=== PATIENT | female | born 1980 | race Caucasian/White ===

== ENCOUNTER 2019-03-19 21:42 | Inpatient (IN) | payer BC ==
[~2019-03-19] VITALS: Ht 167.6 cm; Wt 105.7 kg
--- NOTE | 2019-03-19 22:25 | NUR ---
NURSE NOTES: Report called for direct admit from [facility] by TOM Garcia. Call back number is . Pt is on 5150 hold. ETA for pick-up and transport is 45 minutes. ETA for arrival is about 2345. MD Reed will be admitting doctor. Pending patient arrival.
--- NOTE | 2019-03-19 23:45 | NUR ---
NURSE NOTES: Patient arrived on unit via BLS transport. Pt independently ambulatory to bed with staff supervision. anode builder applied. Belongings list filled out and signed by this RN and patient. Pt has white iphone at bedside, no lithopone charger. Pt also has personal alprazolam rx which has been placed in pharmacy security bag and will be dropped off to pharmacy in AM (Receipt #[id number]). Pt is in stable condition upon arrival. Pt is awake, alert, and oriented x4. Pt is on room air and breathing is even and unlabored. No acute distress noted. IV site is L FA #[id number] inserted at [place] and IV site and dressing are asymptomatic, patent, and intact. Pt provided with orientation to surroundings and hospital policies. Bed placed in lowest position with brake engaged, side rails up x3, and bed alarm on. Call light and side table are placed within reach. Sitter is at bedside per 5150 hold protocol. Will continue to monitor patient and contact MD Reed for admission orders.
[2019-03-20] VITALS: BP 128/82
--- NOTE | 2019-03-20 00:40 | NUR ---
NURSE NOTES: MD Reed contacted for admission orders. Per MD, he will return call in 15 minutes to provide admission orders.
--- NOTE | 2019-03-20 01:15 | NUR ---
NURSE NOTES: MD Reed return call and made aware of current vital signs and pt status, home medications, and abnormal lab values per report from [facility]. MD Reed provide admission orders for patient. Orders noted and carried out. Sitter ordered per and 5150 protocol. Johnna Mckeon CNA is at bedside with patient. MD Amaya to consult.
[2019-03-20 01:52] LABS: APPEARANCE,URINE CLEAR; BILIRUBIN, URINE NEGATIVE (NEGATIVE); COLOR,URINE PALE YELLOW; GLUCOSE, URINE (UA) NEGATIVE (NEGATIVE); KETONES,URINE NEGATIVE (NEGATIVE); LEUKOCYTE ESTERASE ,URINE NEGATIVE (NEGATIVE); NITRITE,URINE NEGATIVE (NEGATIVE); PH,URINE 8 (4.5-8.0); PROTEIN,URINE NEGATIVE (NEGATIVE); UROBILINOGEN,URINE NORMAL MG/DL (0.0-1.0)
[2019-03-20] MEDS: D5NS 1,000 ML IV SCH ×2 (01:52→16:23)
[2019-03-20] MEDS: LORazepam 1mg tab ORAL PRN ×2 (02:04→10:29)
[2019-03-20 04:00] VITALS: BP 128/85
[2019-03-20] MEDS ORDERED: BUPROPION XL300 MG ORAL (05:25)
[2019-03-20] MEDS ORDERED: DICYCLOMINE HCL10 MG PO (05:25)
[2019-03-20] MEDS ORDERED: CYCLOBENZAPRINE10 MG ORAL (05:25)
[2019-03-20] MEDS ORDERED: ALPRAZOLAM1 MG ORAL (05:25)
[2019-03-20] MEDS ORDERED: NORCO 10-325 T1 EACH ORAL (05:25)
[2019-03-20] MEDS ORDERED: CYMBALTA30 MG ORAL (05:25)
--- NOTE | 2019-03-20 06:18 | NUR ---
NURSE NOTES: Pt allowed MRSA swab but is currently declining VRE swab. Will endorse to day shift.
[2019-03-20 06:40] LABS: BASOPHILS % (AUTO) 0.9 % (0.0-2.0); EOSINOPHILS % (AUTO) 0.5 % (0.0-3.0); HEMATOCRIT 36.6 % (37.0-47.0); HEMOGLOBIN 12.7 G/DL (12.0-16.0); LYMPHOCYTES % (AUTO) 34.3 % (20.0-45.0); MEAN CORPUSCULAR VOLUME 88 FL (80-99); MONOCYTES % (AUTO) 5.6 % (1.0-10.0); NEUTROPHILS % (AUTO) 58.8 % (45.0-75.0); PLATELET COUNT 289 K/UL (150-450); RED BLOOD COUNT 4.16 M/UL (4.20-5.40); RED CELL DISTRIBUTION WIDTH 11.5 % (11.6-14.8); WHITE BLOOD COUNT 7.8 K/UL (4.8-10.8)
--- NOTE | 2019-03-20 07:04 | NUR ---
NURSE NOTES: Received report from Jenny/RN, Patient is asleep, No distress/SOB noted at this time, Sitter at bedside. Bed in low position, Call light within reach. Will continue plan of care.
[2019-03-20 07:15] LABS: ANION GAP 11 mmol/L (5-15); BLOOD UREA NITROGEN 9 mg/dL (7-18); CALCIUM 8.9 MG/DL (8.5-10.1); CARBON DIOXIDE 25 MMOL/L (21-32); CHLORIDE 102 MMOL/L (98-107); CREATININE 0.9 MG/DL (0.55-1.30); PHOSPHORUS 4.8 MG/DL (2.5-4.9); POTASSIUM 3.4 MMOL/L (3.5-5.1); SODIUM 138 MMOL/L (136-145)
--- NOTE | 2019-03-20 07:28 | NUR ---
HAND-OFF: Report given to Macarena Swift RN. Pt is sleeping in bed in stable condition. No acute distress noted. Sitter is at bedside. Endorsed plan of care.
--- NOTE | 2019-03-20 07:50 | NUR ---
NURSE NOTES: Pt personal xanax rx taken down to pharmacy in security bag and counted with jazmin Tavera. Total is #20 tablets. Security bag sealed with pharmacist and kept in pharmacy per protocol. Receipt placed in patient chart.
[2019-03-20 08:00] VITALS: BP 126/80
[2019-03-20] MEDS ORDERED: Cyclobenzaprine 10mg Tab ORAL SCH (09:00)
[2019-03-20] MEDS ORDERED: Dicyclomine 10mg Cap ORAL SCH (09:00)
[2019-03-20] MEDS ORDERED: BuPROPion XL 150mg tab ORAL SCH (09:00)
[2019-03-20] MEDS ORDERED: DULoxetine 30mg cap ORAL SCH (09:00)
[2019-03-20] MEDS ORDERED: Dicyclomine 10mg Cap ORAL ONE (09:00)
--- NOTE | 2019-03-20 09:16 | Diagnostic Imaging Report ---
Indication: Cough Technique: One view of the chest Comparison: none Findings: Body habitus limits evaluation. Lungs and pleural spaces are clear. The heart size is normal. Impression: Negative
--- NOTE | 2019-03-20 09:18 | NUR ---
*-* NO INSURANCE INFORMATION TO SEND CLINICALS OR REVIEWS *-*
--- NOTE | 2019-03-20 11:09 | NUR ---
RADIOLOGY DEPT., CHEST X-RAY DONE.-P.DYE
--- NOTE | 2019-03-20 11:38 | Initial Psychiatric Evaluation ---
Psychiatry Consultation Psychiatry Consultation History of Present Illness: 38 yo female who has hx of borderline personality and anxiety who was admitted after she took and overdosed on 6 Xanax. The pt stated that her partner is dx with terminal cancer and for the past year the pt has observed her deteriorating. the pt stated that she is anxious through out the day and takes Xanax. Xanax is prescribed by her psychiatrist and she is taking 3mg a day. the pt was superficial and cracking jokes through the eval. the pt denied SA and stated that she was not suicidal "if I wanted to kill myself I would have taken the whole bottle." the pt stated that she was impulsive however had/has no intention of ending her life. Allergies: Coded Allergies: NO KNOWN ALLERGIES (Verified Allergy, Unknown, 03/19/19) Past Psychiatric History: several psych hospt bpd mdd cutting/self mutilating behavior Medical History: obesity Substance Abuse History: heroin alcohol sober for the past decade Medication History Scheduled Alprazolam* (Xanax*), 1 MG ORAL TID, (Reported) Bupropion Hcl* (Wellbutrin*), 300 MG ORAL DAILY, (Reported) Cyclobenzaprine Hcl* (Flexeril*), 10 MG ORAL DAILY, (Reported) Dicyclomine Hcl* (Dicyclomine Hcl*), 10 MG PO QID, (Reported) Duloxetine Hcl* (Cymbalta*), 30 MG ORAL DAILY, (Reported) Scheduled PRN Hydrocodone Bit/Acetaminophen 10-325* ([place] 10-325*), 1 TAB ORAL Q6H PRN for For Pain, (Reported) Patient History History Provided By: Patient, Medical Record, PMD Objective Data Height (Feet): 5 Height (Inches): 6.00 Weight (Pounds): 233 Appearance: disheveled Behavior Mannerisms: good eye contact Affect: constricted Mood: anxious Thought Process: logical, goal-directed, organized Thought Content: no abnormalities Suicidal Ideation: not present Assessment/Plan Problem List: (1) MDD (major depressive disorder), recurrent episode, moderate ICD Codes: F33.1 - Major depressive disorder, recurrent, moderate SNOMED: 96157556, 786622100 (2) Borderline personality disorder ICD Codes: F60.3 - Borderline personality disorder SNOMED: 67756355 (3) Benzothiadiazides overdose ICD Codes: T50.2X1A - Poisoning by carbonic-anhydrase inhibitors, benzothiadiazides and other diuretics, accidental (unintentional), initial encounter SNOMED: 320948379, 268333887 Assessment/Plan: - spoked to the psychiatrist and notified her [phone] Dr. Robyn tay -sabine welbutrin -topamax -vailum prn -remeron q -dc the sitter -pt may leave when medically cleared Kellie Amaya MD Mar 20, 2019 11:37
[2019-03-20] MEDS ORDERED: Topiramate 100mg tab ORAL SCH (11:45)
[2019-03-20 12:00] VITALS: BP 124/81
--- NOTE | 2019-03-20 12:27 | Consultation ---
History of Present Illness General Date patient seen: Mar 20, 2019 Present Illness HPI 38 year old female with hx of borderline personality disorder, substance abuse, was taken to [facility] after ingesting large amount of ETOH and Xanax. Pt received the initial treatment at [facility] and transferred to [facility] for further work up. Allergies: Coded Allergies: NO KNOWN ALLERGIES (Verified Allergy, Unknown, 03/19/19) Medication History Scheduled Alprazolam* (Xanax*), 1 MG ORAL TID, (Reported) Bupropion Hcl* (Wellbutrin*), 300 MG ORAL DAILY, (Reported) Cyclobenzaprine Hcl* (Flexeril*), 10 MG ORAL DAILY, (Reported) Dicyclomine Hcl* (Dicyclomine Hcl*), 10 MG PO QID, (Reported) Duloxetine Hcl* (Cymbalta*), 30 MG ORAL DAILY, (Reported) Scheduled PRN Hydrocodone Bit/Acetaminophen 10-325* ([place] 10-325*), 1 TAB ORAL Q6H PRN for For Pain, (Reported) Patient History Healthcare decision maker Resuscitation status Full Code Advanced Directive on File Past Medical/Surgical History Past Medical/Surgical History: (1) Self-mutilation (2) Borderline personality disorder (3) ETOH abuse Review of Systems All Other Systems: negative except mentioned in HPI Physical Exam General Appearance: WD/WN Lines, tubes and drains: peripheral HEENT: normocephalic, atraumatic Neck: non-tender, normal alignment Respiratory/Chest: chest wall non-tender, lungs clear Breasts: no masses Cardiovascular/Chest: normal peripheral pulses Last 24 Hour Vital Signs Date Time Temp Pulse Resp B/P (MAP) Pulse Ox O2 Delivery O2 Flow Rate FiO2 03/20/19 08:00 97.9 109 19 126/80 (95) 93 03/20/19 04:00 117 03/20/19 04:00 98.6 110 20 128/85 (99) 95 03/20/19 00:00 117 03/20/19 00:00 98.1 117 22 128/82 (97) 96 03/19/19 23:53 Room Air Intake and Output 03/19/19 03/20/19 19:00 07:00 Intake Total 240 ml Balance 240 ml Intake Oral 240 ml # Voids 3 Laboratory Tests Test 03/20/19 01:03/20/19 06:05 Urine Color Pale yellow Urine Appearance Clear Urine pH 8 (4.5-8.0) Urine Specific [place] 1.010 (1.005-1.035) Urine Protein Negative (NEGATIVE) Urine Glucose (UA) Negative (NEGATIVE) Urine Ketones Negative (NEGATIVE) Urine Blood Negative (NEGATIVE) Urine Nitrite Negative (NEGATIVE) Urine Bilirubin Negative (NEGATIVE) Urine Urobilinogen Normal MG/DL (0.0-1.0) Urine Leukocyte Esterase Negative (NEGATIVE) Urine RBC 0-2 /HPF (0 - 2) Urine WBC 0 /HPF (0 - 2) Urine Squamous Epithelial Cells Few /LPF (NONE/OCC) Urine Bacteria None /HPF (NONE) Urine Opiates Screen Negative (NEGATIVE) Urine Barbiturates Screen Negative (NEGATIVE) Phencyclidine (PCP) Screen Negative (NEGATIVE) Urine Amphetamines Screen Negative (NEGATIVE) Urine Benzodiazepines Screen Positive (NEGATIVE) H Urine Cocaine Screen Negative (NEGATIVE) Urine Marijuana (THC) Screen Negative (NEGATIVE) White Blood Count 7.8 K/UL (4.8-10.8) Red Blood Count 4.16 M/UL (4.20-5.40) L Hemoglobin 12.7 G/DL (12.0-16.0) Hematocrit 36.6 % (37.0-47.0) L Mean Corpuscular Volume 88 FL (80-99) Mean Corpuscular Hemoglobin 30.5 PG (27.0-31.0) Mean Corpuscular Hemoglobin Concent 34.6 G/DL (32.0-36.0) Red Cell Distribution Width 11.5 % (11.6-14.8) L Platelet Count 289 K/UL (150-450) Mean Platelet Volume 6.4 FL (6.5-10.1) L Neutrophils (%) (Auto) 58.8 % (45.0-75.0) Lymphocytes (%) (Auto) 34.3 % (20.0-45.0) Monocytes (%) (Auto) 5.6 % (1.0-10.0) Eosinophils (%) (Auto) 0.5 % (0.0-3.0) Basophils (%) (Auto) 0.9 % (0.0-2.0) Sodium Level 138 MMOL/L (136-145) Potassium Level 3.4 MMOL/L (3.5-5.1) L Chloride Level 102 MMOL/L (98-107) Carbon Dioxide Level 25 MMOL/L (21-32) Anion Gap 11 mmol/L (5-15) Blood Urea Nitrogen 9 mg/dL (7-18) Creatinine 0.9 MG/DL (0.55-1.30) Estimat Glomerular Filtration Rate > 60 mL/min (>60) Glucose Level 125 MG/DL (74-106) H Calcium Level 8.9 MG/DL (8.5-10.1) Phosphorus Level 4.8 MG/DL (2.5-4.9) Magnesium Level 2.0 MG/DL (1.8-2.4) Height (Feet): 5 Height (Inches): 6.00 Weight (Pounds): 233 Medications Current Medications Medications (Trade) Dose Ordered Sig/Avelina Route PRN Reason Start Time Stop Time Status Last Admin Dose Admin Cyclobenzaprine HCl (Flexeril) 10 mg DAILY ORAL 03/20/19 09:00 04/19/19 08:59 03/20/19 08:29 Dextrose/Sodium Chloride 1,000 ml @ 75 mls/hr [id number] IV 03/20/19 02:00 04/19/19 01:59 03/20/19 01:52 Duloxetine HCl (Cymbalta) 30 mg DAILY ORAL 03/20/19 09:00 04/19/19 08:59 03/20/19 08:29 Ibuprofen (Motrin) 600 mg Q8H PRN ORAL For Pain 03/20/19 01:30 04/19/19 01:29 03/20/19 10:29 Lorazepam (Ativan) 1 mg Q6H PRN ORAL For Anxiety 03/20/19 01:30 03/27/19 01:29 03/20/19 10:29 Ondansetron HCl (Zofran) 4 mg Q6H PRN IVP Nausea & Vomiting 03/20/19 01:30 04/19/19 01:29 Topiramate (Topamax) 50 mg DAILY ORAL 03/20/19 11:45 04/19/19 11:44 03/20/19 12:15 Assessment/Plan Problem List: (1) Benzothiadiazides overdose ICD Codes: T50.2X1A - Poisoning by carbonic-anhydrase inhibitors, benzothiadiazides and other diuretics, accidental (unintentional), initial encounter SNOMED: 905027642, 198956345 (2) ETOH abuse ICD Codes: F10.10 - Alcohol abuse, uncomplicated SNOMED: 85961304 (3) Borderline personality disorder ICD Codes: F60.3 - Borderline personality disorder SNOMED: 94874792 Assessment/Plan: symptomatic treatment check electrolytes f/u psychiatry recommendations med/surg Jc Gutierrez MD Mar 20, 2019 12:27
--- NOTE | 2019-03-20 12:30 | NUR ---
Social Service Note SW met with patient who is alert with a flat affect, oriented and verbally responsive. Patient transferred from [place] due to benzo overdose requiring psychiatric intervention. Patient denies suicide attempt. Patient states she has poor coping skills. Patient states she was diagnosed with Boarderline Personality Disorder many years ago. Patient states having prior hospitalizations for inpatient, partial and IOP programs. Patient states she is tired of discussing the reasons leading up to her over use of her medication. Patient states having a psychiatrist Dr. Carlson [phone] who she feels she will need to increase her visitations with now with her recent incident. Patient states she is currently unemployed. Patient lives alone with her dog. Patient states her sister and mother are very involved and provide oversight and financial support. Patient doesn't feel inpatient hospitalization is required. Patient denies SI/HI. Patient discussed using therapy techniques such as CBT to help cope with life stressors. SW discussed [facility] program. Patient was receptive to speak with special programs director. SW referred patient. CATRACHITA arranged follow up appointment with Dr. Carlson, SundayMarch 24 at 12pm. Will continue to monitor and assist as needed
--- NOTE | 2019-03-20 13:43 | NUR ---
CASE MANAGEMENT:REVIEW 38 YR OLD FEMALE TRANSFERRED FROM [place] SI: OVERDOSE 98.1 117 22 128/82 96% ON RA K-3.4 URINE TOX(+) BENZODIAZEPINES IS: ATIVAN PO Q6HRS PRN IVF@75/HR WELLBUTRIN PO QD BENTYL PO TID CYMBALTA PO QD FLEXERIL PO QD TOPAMAX PO QD : DIRECTLY ADMITTED TO TELEMETRY INTERQUAL CRITERIA MET
--- NOTE | 2019-03-20 14:41 | NUR ---
Social Service Note CATRACHITA received a call from patient's sister Kedar Kinney [phone] regarding transfer to [facility] at [facility]. CATRACHITA notified Dr. Reed and Dr. Gutierrez. Patient medically cleared per Dr. Gutierrez. Referral faxed to [facility] [phone] (f) [phone] (p). Pending review and acceptance. If accepted family has arranged for a personal drive to transport patient to the program. Will continue to follow up.
[2019-03-20 16:00] VITALS: BP 136/85
--- NOTE | 2019-03-20 16:35 | NUR ---
Social Service Note Patient will not be going to [facility]. Family has made arrangements for patient to be accompanied to [facility] to travel to [place] and enter a treatment program. DC order in place for tomorrow morning. Patient will be picked up at 7am. SW informed charge nurse.
--- NOTE | 2019-03-20 19:30 | NUR ---
HAND-OFF: Report given to Geoff/RN, Patient awake and alert, sitting up on bed, Patient is in stable condition. Endorsed plan of care.
--- NOTE | 2019-03-20 19:48 | NUR ---
NURSE NOTES: Received patient from Cherelle RN. Patient in bed, alert, anxious, requested anxiety medication. Explained to patient that the next Valium is due in 40 minutes. Patient was cooperative and understood. Bed in low position, alarm on, locked, call light within reach. Will continue to monitor.
[2019-03-20 20:00] VITALS: BP 151/78
--- NOTE | 2019-03-20 21:50 | NUR ---
NURSE NOTES: IV on left forearm infiltrated, discontinued IV site. Restarted IV on left hand, 22 gauge, and resumed D5NS at 75ml/hr.
--- NOTE | 2019-03-20 22:00 | NUR ---
NURSE NOTES: Patient's sister arrived and left luggage and laptop for patient at bedside. Sister stated patient will be leaving with reach lift truck driver approximately 0745 in the morning for flight to [place].
--- NOTE | 2019-03-20 23:15 | History and Physical Report ---
DATE OF ADMISSION: 03/19/2019 CHIEF COMPLAINT: The patient is a 38-year-old white female, who presents with a chief complaint of overdose as a suicidal attempt. HISTORY OF PRESENT ILLNESS: The patient has a history of bipolar depression. The patient states she has never been hospitalized for this. The patient states she has become increasingly depressed after the diagnosis of her partner with terminal cancer. The patient states her partner was diagnosed 1 year ago. The patient then began drinking heavily. The patient was given Wellbutrin and Lexapro for anxiety. Recently, the patient was prescribed Xanax for anxiety. The patient was prescribed 1 mg tablets. The patient took 6 tablets of 1 mg Xanax on 03/19/2019 as a suicide gesture. The patient's sister called [phone]. The patient initially presented to [facility] emergency room. The patient is transferred to [facility] for insurance purposes. The patient is admitted for overdose of Xanax as intentional suicide gesture. REVIEW OF SYSTEMS: CONSTITUTIONAL: The patient denies weight loss or weight gain. The patient denies fevers or chills. HEENT: The patient denies fevers or chills. CARDIOVASCULAR: The patient denies palpitations or chest pain. CHEST: The patient denies wheeze or shortness of breath. ABDOMINAL: The patient denies nausea, vomiting, diarrhea, or constipation. GENITOURINARY: The patient denies dysuria or increased frequency of urination. NEUROMUSCULAR: The patient denies seizures or generalized weakness. PAST MEDICAL HISTORY: Significant for, 1. Bipolar depression. PAST SURGICAL HISTORY: Significant for left foot fracture in 2017. CURRENT MEDICATIONS: 1. Wellbutrin of an unknown dose daily. 2. Lexapro of an unknown dose daily. ALLERGIES: No known drug allergies. SOCIAL HISTORY: The patient is gooden with the female partner. The patient's partner has terminal cancer as above. The patient denies tobacco use having quit in 2018. The patient currently . The patient admits to alcohol use of an unknown quantity daily. PHYSICAL EXAMINATION: VITAL SIGNS: Temperature 98.1, respirations 22, pulse 117, and blood pressure 128/82. GENERAL: The patient is a well-developed and well-nourished white female, in no apparent distress. HEENT: Eyes, pupils are equal and responsive to light and accommodation. Extraocular movements are intact. NECK: Supple without lymphadenopathy. CHEST: Lungs are clear to auscultation bilaterally without wheezes or rales. CARDIOVASCULAR: Tachycardic, regular rhythm. S1, S2 are normal without murmurs, rubs, or gallops. ABDOMEN: Soft, nontender, and nondistended. Positive bowel sounds. No evidence of hepatosplenomegaly. Currently, no rebound or guarding noted. EXTREMITIES: Negative for clubbing, cyanosis, or edema. RECTAL/GENITAL: Not performed. NEUROLOGIC: Cranial nerves II through XII are grossly intact without focal deficits. Motor strength is 5/5 bilaterally. Deep tendon reflexes are 2+ plantar. LABORATORY STUDIES: WBC 11.3, hemoglobin 14.0, hematocrit 41.4, and platelets 354,000. Sodium 127, potassium 4.9, chloride 95, CO2 16, BUN 9, creatinine 0.8, and glucose 113. ASSESSMENT: This is a 38-year-old white female. 1. Suicide attempt. 2. Major depression. 3. Bipolar disorder. 4. Hyponatremia. 5. Tachycardia. TREATMENT: 1. Suicide attempt/major depression. A Psychiatric consultation has been obtained with Dr. Amaya. The patient is currently on Cymbalta, Topamax, and Valium. We will follow recommendations of Psychiatry. The patient is currently on a 5150. 2. Hyponatremia. The patient is currently receiving intravenous fluids. A repeat BMP is pending. 3. Tachycardia. This may be secondary to anxiety. Sam Junior M.D. DR: MIRA JOB#: [id number] CC:
[2019-03-21] VITALS: BP 128/100
--- NOTE | 2019-03-21 01:10 | NUR ---
NURSE NOTES: Patient's IV occluded again because patient gets out of bed to go to bathroom by herself and accidentally pulls on the IV. She was instructed to call so staff can disconnect her but keeps forgetting. Reminded patient to call if she wants to get out of bed so staff can disconnect her. Inserted PIV #22 on right hand and resumed D5NS at 75ml/hr.
[2019-03-21] MEDS: D5NS 1,000 ML IV SCH (04:40)
[2019-03-21] MEDS ORDERED: DIAZEPAM10 MG ORAL (06:47)
--- NOTE | 2019-03-21 07:20 | NUR ---
NURSE NOTES: Pt had to leave early in AM for flight to rehab in [place]. Called Dr. Gutierrez two times to ask about discharge medications. No response. Talked with Dr. Reed who ordered to continue only home medications. Discharge paperwork signed, wristband removed, IV removed, and pt discharged safely with friend from floor. Pt in stable condition.
--- NOTE | 2019-03-21 10:52 | NUR ---
*-* INSURANCE *-* ALL CLINICALS AND REVIEWS HAVE BEEN FAXED TO: [facility] REF#[id number] CLIPPER MACHINE OPERATOR NOT ASSIGNED OF YET. PLEASE FAX REVIEWS AND CLINICALS TO
--- NOTE | 2019-03-21 11:07 | NUR ---
*-* INSURANCE *-* ALL CLINICALS AND REVIEWS HAVE BEEN FAXED TO: R[employer]SE[employer] DSOU[facility] @ [phone] CALL BODY FITTER NOT ASSIGNED OF YET. PLEASE FAX REVIEWS AND CLINICALS TO
--- NOTE | 2019-03-21 14:43 | Discharge Summary ---
Discharge Summary Hospital Course Date of Admission Mar 19, 2019 at 23:41 Date of Discharge Mar 21, 2019 at 07:20 Admitting Diagnosis HPI Bhumi Merlos is a 38 year old female who was admitted on Mar 19, 2019 at 23: 41 for Benzodiazepine Overdose Hospital Course Last 24 Hour Vital Signs Date Time Temp Pulse Resp B/P (MAP) Pulse Ox O2 Delivery O2 Flow Rate FiO2 03/21/19 00:00 97.6 109 20 128/100 (109) 95 03/20/19 21:00 Room Air 03/20/19 20:00 97.9 117 20 151/78 (102) 98 03/20/19 16:00 97.0 114 20 136/85 (102) 96 Discharge Discharge Disposition Patient was discharged to [facility] GOING TO Tommy Lowe MD Mar 21, 2019 14:42
--- NOTE | 2019-03-21 21:50 | Psych Consult Progress Note ---
Psychiatry Progress Note Psychiatry Progress Note Neurological/Psychiatric: Reports: anxiety, depressed, emotional problems Allergies: Coded Allergies: NO KNOWN ALLERGIES (Verified Allergy, Unknown, 03/19/19) Objective Data Height (Feet): 5 Height (Inches): 6.00 Weight (Pounds): 233 General Appearance: WD/WN, no apparent distress, alert, alert oriented x3 Appearance: disheveled Behavior Mannerisms: good eye contact Mental Status Exam - Affect: flat Mental Status Exam - Mood: depressed, anxious Speech: clear Mental Status Exam - Thought P: no abnormalities Mental Status Exam - Suicidal: not present Assessment/Plan Problem List: (1) MDD (major depressive disorder), recurrent episode, moderate ICD Codes: F33.1 - Major depressive disorder, recurrent, moderate SNOMED: 33803495, 233327393 (2) Borderline personality disorder ICD Codes: F60.3 - Borderline personality disorder SNOMED: 64526750 (3) Benzothiadiazides overdose ICD Codes: T50.2X1A - Poisoning by carbonic-anhydrase inhibitors, benzothiadiazides and other diuretics, accidental (unintentional), initial encounter SNOMED: 712564284, 990825594 Status: stable, progressing Assessment/Plan: - spoked to the psychiatrist and notified her [phone] Dr. Robyn hernandez -ev [facility] -pt may leave when medically cleared Kellie Amaya MD Mar 21, 2019 21:50
--- NOTE | 2019-03-21 22:00 | Cardiology Report ---
APPROVED REPORT EKG Measurement Heart [id number] WI [id number] Sinus tachycardia Possible Left atrial enlargement Borderline ECG
--- NOTE | 2019-03-22 06:45 | Discharge Summary ---
DATE OF ADMISSION: 03/19/2019 DATE OF DISCHARGE: 03/21/2019 HOSPITAL COURSE: This is a 38-year-old very delightful female with past medical history significant for bipolar disorder, who has presented initially to [facility] after she was noted to have overdose with a suicidal attempt. Shortly after initial evaluation, the patient was transferred to the [facility]. Throughout the hospital course, the patient was followed by Dr. Gutierrez, Pulmonary Critical Care and Dr. Kellie Amaya from Psychiatry. The patient's status gradually improved and subsequently was discharged home to be followed up with the outpatient drug rehabbing care. FINAL DIAGNOSES: 1. Bipolar disorder with major depression. 2. Overdose on the benzodiazepine. 3. Borderline personality disorder. 4. Hyponatremia. 5. Tachycardia. 6. Suicidal attempt. MEDICATION AT DISCHARGE: Continue discharge medication list. ACTIVITY: As tolerated. DIET: Regular diet. FOLLOWUP: The patient was advised to follow up with her primary physician as well as the outpatient psychiatric clinic within 1 to 2 days. Tommy Reed M.D. DR: BEE JOB#: [id number] CC:
--- NOTE | 2019-03-22 13:31 | Cardiology Report ---
APPROVED REPORT EXAM: Two-dimensional and M-mode echocardiogram with Doppler and color Doppler. INDICATION Tachycardia M-Mode DIMENSIONS IVSd1.7 (0.7-1.1cm)Left Atrium (MM)3.6 (1.6-4.0cm) LVDd3.1 (3.5-5.6cm)Aortic Root2.6 (2.0-3.7cm) PWd1.4 (0.7-1.1cm)Aortic Cusp Exc.1.9 (1.5-2.0cm) LVDs2.0 (2.5-4.0cm) PWs2.0 cm Other Information Technically limited study due to pts resistance and position. Normal left ventricular chamber size, systolic function and wall motion to extent visualized. Left ventricular ejection fraction estimated to be 65-70 %. Moderate left ventricular hypertrophy. Anterior Echo-free space, may be due to pericardial fat or effusion. All other cardiac chamber sizes are within normal limits. Mild focal aortic valve sclerosis with adequate cusp excursion. Mildly thickened mitral valve leaflets with normal excursion. Mild mitral annulus and aortic root calcification. Pulmonic valve not well visualized. Normal tricuspid valve structure. IVC at normal size with physiologic collapse. A color flow and spectral Doppler study was performed and revealed: Trace mitral regurgitation. Mitral diastolic velocities suggest reduced left ventricular relaxation c/w mild LV diastolic dysfunction (Grade I). Trace tricuspid regurgitation. Tricuspid systolic velocities suggests peak right ventricular systolic pressure of 14 mmHg.
== END 2019-03-21 07:20 | disposition home or self-care (01) | DRG 918 ==
LOC: 2E 23:41
DX: T42.4X2A Poisoning by benzodiazepines, intentional self-harm, initial encounter (principal); F33.9 Major depressive disorder, recurrent, unspecified; E87.1 Hypo-osmolality and hyponatremia; F10.10 Alcohol abuse, uncomplicated; F60.3 Borderline personality disorder; R00.0 Tachycardia, unspecified; F41.9 Anxiety disorder, unspecified; Z91.5 Personal history of self-harm
CPT/HCPCS: 36415; 71045; 80048; 80307; 81001; 83735; 84100; 85025; 87081; 93005; 93306